=== PATIENT | male | born 1980 | race Caucasian/White ===

== ENCOUNTER 2016-09-30 09:42 | Emergency (ER) | payer OTHER ==
--- NOTE | 2016-09-30 10:59 | ER Document Report ---
HPI - HPI Patient complains to provider of: Right knee injury Onset: Last week Onset/Duration: Persistent Quality of pain: Sharp Pain Level: 4 Context: Patient states that he was standing on aircraft that was about 4 foot off the ground. Patient states that he fell backwards onto his right foot causing his right knee to buckle. Patient complains of right knee pain and swelling since then. Patient does report having previous ACL, MCL meniscus surgery on this knee in the past. Associated Symptoms: Other - Right knee injury Exacerbated by: Standing, Movement, Walking Relieved by: Denies Similar symptoms previously: Yes Recently seen / treated by doctor: No - ROS ROS below otherwise negative: Yes Systems Reviewed and Negative: Yes All other systems reviewed and negative - CARDIOVASCULAR Cardiovascular: DENIES: Chest pain - GASTROINTESTINAL Gastrointestinal: DENIES: Nausea - MUSCULOSKELETAL Musculoskeletal: REPORTS: Extremity pain, Swelling - DERM Skin Color: Normal Skin Problems: None Past Medical History - General Information source: Patient - Social History Smoking Status: Current Every Day Smoker Chew tobacco use (# tins/day): No Frequency of alcohol use: Rare Drug Abuse: None 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 IN LAST 30 DAYS: No - HEENT HEENT: Atraumatic, Normocephalic - NECK Neck: Normal Inspection - RESPIRATORY Respiratory: No Respiratory Distress O2 Sat by Pulse Oximetry: 97 - CARDIOVASCULAR Pulses: Normal: Dorsalis pedis - MUSCULOSKELETAL/EXTREMETIES Musculoskeletal/Extremeties: MAEW, FROM, Tender - Right knee joint tenderness to popliteal area. Patient with moderate effusion, patellar tendon intact, Edema. negative: Eccymosis - NEURO Level of Consciousness: Awake, Alert, Appropriate Motor/Sensory: No Motor Deficit - DERM Integumentary: Warm, Dry, No Rash Course - Vital Signs Vital signs: Temp Pulse Resp BP Pulse Ox 98.6 F 83 16 147/81 H 97 09/30/16 09:49 09/30/16 09:49 09/30/16 09:49 09/30/16 09:49 09/30/16 09:49 - Diagnostic Test Radiology reviewed: Image reviewed, Reports reviewed Procedures - Immobilization Right Knee Pre-Proc Neuro Vasc Exam: Normal Immobilizer type: Anuj wrap, Knee immobilizer Performed by: PCT Post-Proc Neuro Vasc Exam: Normal Alignment checked and good: Yes Discharge - Discharge Clinical Impression: Elevated blood pressure reading Knee sprain Qualifiers: Encounter type: initial encounter Involved ligament of knee: unspecified ligament Laterality: right Qualified Code(s): S83.91XA - Sprain of unspecified site of right knee, initial encounter Condition: Stable Disposition: HOME, SELF-CARE Instructions: Use of Crutches ([facility]), Ice & Elevation ([facility]), Suspected Internal Knee Injury ([facility]), Knee Immobilizing Splint ([facility]), Oral Narcotic Medication ([facility] ), Sprained Knee ([facility]) Additional Instructions: Return immediately for any new or worsening symptoms Followup with your primary care provider, call tomorrow to make a followup appointment Follow-up with your orthopedic surgeon for further evaluation, call today for an appointment Prescriptions: Oxycodone HCl/Acetaminophen [Percocet 5-325 mg Tablet] 1 tab PO ASDIR PRN #15 tablet PRN Reason: Forms: Elevated Blood Pressure, Return to Work Referrals: [facility] ([facility] [Provider Group] - Follow up as needed
[2016-09-30 11:14] VITALS: BP 140/80
--- NOTE | 2016-09-30 11:21 | RADIOLOGY REPORT (SQ) ---
EXAM DESCRIPTION: KNEE RIGHT 4 VIEWS COMPLETED DATE/TIME: 09/30/2016 11:11 am REASON FOR STUDY: right knee injury COMPARISON: None. NUMBER OF VIEWS: Four views. TECHNIQUE: AP, lateral, and both oblique radiographic images acquired of the right knee. LIMITATIONS: None. FINDINGS: MINERALIZATION: Normal. BONES: No acute fracture or dislocation. Postsurgical changes are identified related to an ACL repai r. There is some cortical irregularity in separate bony ossicles at the level of the tibial tuberosi ty presumably related to previous trauma. JOINT: No effusion. SOFT TISSUES: No soft tissue swelling. No radio-opaque foreign body. OTHER: Orthopedic hardware is identified at the level of the proximal tibia. IMPRESSION: No evidence for acute fracture dislocation. Postsurgical changes as noted above. Other findings as noted above. TECHNICAL DOCUMENTATION: JOB ID: [id number] [employer]- All Rights Reserved
== END 2016-09-30 11:14 | disposition home or self-care (01) ==
LOC: ER 09:42
DX: S83.91XA Sprain of unspecified site of right knee, initial encounter (principal); R03.0 Elevated blood-pressure reading, without diagnosis of hypertension; F17.200 Nicotine dependence, unspecified, uncomplicated; V97.0XXA Occupant of aircraft injured in other specified air transport accidents, initial encounter; Y99.0 Civilian activity done for income or pay
CPT/HCPCS: 99283; 73564; L1830

== ENCOUNTER 2019-09-25 13:03 | Emergency (ER) | payer BC, OTHER ==
--- NOTE | 2019-09-25 13:10 | ER Document Report ---
ED Medical Screen (RME) - General Chief Complaint: Laceration Stated Complaint: LEFT HAND INJURY Time Seen by Provider: 09/25/19 13:07 Mode of Arrival: Ambulatory Information source: Patient Notes: 39-year-old male presented to ED for a laceration to the fifth finger on the left hand. The finger is kind of hanging by the skin. He also has a laceration above his left eyebrow. He was cleaning up some brush and debris and he was using the machete with a right-handed swing it came out of his hand caught the left hand and then bounced up to the face. He is still actively bleeding. We will get x-rays and have seen promptly. I have greeted and performed a rapid initial assessment of this patient. A comprehensive ED assessment and evaluation of the patient, analysis of test results and completion of medical decision making process will be conducted by an additional ED providers. TRAVEL OUTSIDE OF THE [place] IN LAST 30 DAYS: No - Related Data Allergies/Adverse Reactions: No Known Allergies Allergy (Unverified 04/01/13 20:01) Past Medical History Renal/ Medical History: Denies: Hx Peritoneal Dialysis Past Surgical History: Reports: Hx Orthopedic Surgery - Immunizations Hx Diphtheria, Pertussis, Tetanus Vaccination: Yes - 2010
[2019-09-25] MEDS ORDERED: NORMAL SALINE 1000 ML 1,000 ML IV ONE (13:11)
[2019-09-25] MEDS ORDERED: CEFAZOLIN 2 GM/D5W RTU 2 GM/50 ML RTUPB IV ONE (13:20)
[2019-09-25] MEDS ORDERED: HYDROMORPHONE HCL INJ/PF 2 MG/ML AMPULE IV ONE (13:20)
--- NOTE | 2019-09-25 13:26 | ER Document Report ---
ED General - General Chief Complaint: Laceration Stated Complaint: LEFT HAND INJURY Time Seen by Provider: 09/25/19 13:07 Primary Care Provider: [facility] [Provider Group] - Follow up as needed Mode of Arrival: Ambulatory Notes: This is a 39-year-old inyyn-gakv-xesrvxgn male presenting with a laceration/near amputation of the right pinky finger in the setting of using a machete to clear brush. He chop the left pinky finger with his right hand, sliced through the distal phalangeal segment and initially bounced off and hit him in the left forehead causing a laceration there as well. No LOC bleeding controlled on the forehead bleeding active in the pinky. Tetanus is up-to-date. Patient has anesthesia to the distal finger distal to the laceration. TRAVEL OUTSIDE OF THE [place] IN LAST 30 DAYS: No - Related Data Allergies/Adverse Reactions: No Known Allergies Allergy (Unverified 04/01/13 20:01) Past Medical History - General Information source: Patient - Social History Smoking Status: Never Smoker Family History: Reviewed & Not Pertinent Renal/ Medical History: Denies: Hx Peritoneal Dialysis Past Surgical History: Reports: Hx Orthopedic Surgery - Immunizations Hx Diphtheria, Pertussis, Tetanus Vaccination: Yes - 2010 Physical Exam - Vital signs Vitals: Temp Pulse Resp BP Pulse Ox 98.6 F 88 14 135/78 H 99 09/25/19 15:11 09/25/19 15:11 09/25/19 15:11 09/25/19 15:11 09/25/19 15:11 Course - Re-evaluation Re-evalutation: 09/25/19 18:59 Machete injury with partial amputation, fracture dislocation arterial nerve and tendon injury of the left small finger. Distal circulation appears partially intact. His fingers are discolored at baseline so is difficult to tell. Also has laceration to the forehead with no acute blunt head trauma or concern for penetrating skull injury Forehead laceration repaired. Ortho consulted on the finger. X-ray shows open fracture of the distal middle phalanx with displacement of the joint. Dr. Grewal has seen the patient to Dr. Grewal is going to repair this in the ED including partial reattachment tendon repair and Dillon wire application. This was all done by him under sterile procedure and I give the patient antibiotic tetanus discharge with antibiotic and pain medicine to follow-up with Dr. Grewal's practice. I have discussed with the patient there likely diagnosis, aftercare plan, follow-up plans and my usual and customary return precautions. They verbalized understanding of this. - Vital Signs Vital signs: Temp Pulse Resp BP Pulse Ox 98.6 F 88 14 135/78 H 99 09/25/19 15:11 09/25/19 15:11 09/25/19 15:11 09/25/19 15:11 09/25/19 15:11 Procedures - Laceration/Wound Repair Left Upper Face Wound length (cm): 4 Wound's Depth, Shape: Superficial Laceration pre-procedure: Betadine prep applied Wound explored: Clean Irrigated w/ Saline (mLs): 50 Wound Repaired With: Dermabond - 2 layers Discharge - Discharge Clinical Impression: Amputation of finger Qualifiers: Encounter type: initial encounter Qualified Code(s): S68.119A - Complete traumatic metacarpophalangeal amputation of unspecified finger, initial encounter Condition: Good Disposition: HOME, SELF-CARE Instructions: Antibiotic Ointment Protection ([facility]), Laceration Care ([facility]), Prophylactic Antibiotic ([facility]) Additional Instructions: Dr. Grewal from orthopedics has reattached and repaired your pinky finger amputation. Per his instructions, return to his office next week for a follow- up. Keep the finger splinted. You may wash the area after 48 hours of keeping it dry should then replace the antibiotic ointment, bandaging and splint. Prescriptions: Cephalexin Monohydrate [Keflex 500 mg Capsule] 500 mg PO Q6H 5 Days capsule Oxycodone HCl [Oxycontin Ir 5 Mg Tablet] 1 - 2 mg PO Q4H PRN #15 tablet PRN Reason: For Pain Referrals: [facility] ([facility] [Provider Group] - Follow up as needed
[2019-09-25] MEDS ORDERED: LIDOCAINE 2% INJ (20 MG/ML) 20 ML MDV INJ ONE (14:05)
--- NOTE | 2019-09-25 15:17 | RADIOLOGY REPORT (SQ) ---
EXAM DESCRIPTION: FINGER LEFT IMAGES COMPLETED DATE/TIME: 09/25/2019 2:31 pm REASON FOR STUDY: laceration active bleeding hanging off COMPARISON: None. NUMBER OF VIEWS: Three views. TECHNIQUE: AP, lateral, and oblique images acquired of the left fifth finger. LIMITATIONS: None. FINDINGS: MINERALIZATION: Normal. BONES: There is a moderately displaced fracture of the dorsoradial base of the 5th digit distal phala nx with intra-articular extension. SOFT TISSUES: Soft tissue defect overlies the osseous injury site. OTHER: No other significant finding. IMPRESSION: Moderately displaced fracture of the dorsal radial base of the 5th digit distal phalanx with intra-articular extension and overlying soft tissue defect. TECHNICAL DOCUMENTATION: JOB ID: [id number] 2010 [employer]- All Rights Reserved Reading location - IP/workstation name: [email or web address]
[2019-09-25 16:08] VITALS: BP 135/78
--- NOTE | 2019-09-25 16:09 | Operative Report ---
Operative Report DATE OF SURGERY: 09/25/19 PREOPERATIVE DIAGNOSIS: Laceration and arthrotomy with flexor tendon complete l aceration of the DIP of the fifth digit of the left hand. POSTOPERATIVE DIAGNOSIS: Laceration and arthrotomy with flexor tendon complete laceration of the DIP of the fifth digit of the left hand. OPERATION: Left fifth finger I&D, repair of laceration, repair of flexor tendon. SURGEON: SUNNY MORALES JR COMPLICATIONS: None ESTIMATED BLOOD LOSS: 10 cc PROCEDURE: Bedside I&D was performed after discussing risks benefits and alternatives with the patient. I provided the patient with a block to the left fifth finger with 2% lidocaine. After adequate analgesia the left upper extremity was prepped with Betadine solution. I then placed the left fifth digit under tourniquet with a Paterson drain. The wound was explored and copiously irrigated. The laceration from his machete cut through the lateral aspect of the DIP joint and nearly completely amputated his finger aside from a radial skin bridge that appeared to contain the radial digital artery and nerve. After copious irrigation and debridement of any loose tissue, the flexor tendon was addressed. Using a 4-0 Vicryl suture a Vela type stitch was placed followed by oversewing in a running fashion. Subsequent to this I close the skin and underlying fascia with large bites from a 4-0 nylon in a running fashion. A sterile dressing was then placed followed by a splint. Patient tolerated procedure well.
--- NOTE | 2019-09-25 16:15 | PDOC CONSULTATION ---
Consultation Consult Date: 09/25/19 Provider Consulted: SUNNY MORALES JR History of Present Illness History of Present Illness: MICHEL CARMONA is a 39 year old male who struck his finger today while making his way through the [place] with his machete. He had near complete amp utation at that time and presented to the emergency department. He reports 8 out of 10 pain, worse with any motion, improved with rest, improved with pain medication. He explains that is surprisingly painful, more than he expected to be. He denies any other associated injury aside from a small laceration above his left eyebrow. He has minimal sensation of the fingertip at this time. Past Surgical History Past Surgical History: Reports: Orthopedic Surgery Social History Smoking Status: Current Every Day Smoker Electronic Cigarette use?: No Family History Family History: Reviewed & Not Pertinent Parental Family History Reviewed: No Children Family History Reviewed: NA Sibling(s) Family History Reviewed.: NA Medication/Allergy Home Medications: Buprenorphine [Butrans] 04/01/13 Tramadol HCl 04/01/13 Amox Tr/Potassium Clavulanate [Augmentin 875-125 Tablet] 1 tab PO BID #20 tablet 09/20/14 Crutch 1 each MC CONTINUOUS PRN #0 each 09/20/14 Oxycodone HCl/Acetaminophen [Percocet 5-325 mg Tablet] 1 tab PO QID #30 tablet 09/20/14 Oxycodone HCl/Acetaminophen [Percocet 5-325 mg Tablet] 1 tab PO ASDIR PRN #15 tablet 09/30/16 Cephalexin Monohydrate [Keflex 500 mg Capsule] 500 mg PO Q6H 5 Days capsule 09/25/19 Oxycodone HCl [Oxycontin Ir 5 Mg Tablet] 1 - 2 mg PO Q4H PRN #15 tablet 09/25/19 Allergies/Adverse Reactions: No Known Allergies Allergy (Unverified 04/01/13 20:01) Review of Systems Review of Systems: Constitutional: ABSENT: anorexia, chills, night sweats Cardiovascular: ABSENT: chest pain Respiratory: ABSENT: dyspnea Gastrointestinal: ABSENT: vomiting Genitourinary: ABSENT: dysuria Integumentary: ABSENT: rash Neurological: ABSENT: confusion, memory loss, numbness Psychiatric: ABSENT: hallucinations Hematologic/Lymphatic: ABSENT: easy bleeding Physical Exam Vital Signs: Temp Pulse Resp BP Pulse Ox 98.6 F 88 14 135/78 H 99 09/25/19 15:11 09/25/19 15:11 09/25/19 15:11 09/25/19 15:11 09/25/19 15:11 Intake & Output 09/24/19 09/25/19 09/26/19 06:59 06:59 06:59 Intake Total 1050 Balance 1050 Weight 104.355 kg Physical Exam: General appearance: PRESENT: no acute distress, cooperative, well-nourished Head exam: PRESENT: atraumatic, normocephalic Eye exam: PRESENT: EOMI Ear exam: PRESENT: normal external ear exam Mouth exam: PRESENT: neck supple Neck exam: ABSENT: tracheal deviation Respiratory exam: PRESENT: symmetrical, unlabored. ABSENT: accessory muscle use, wheezes Pulses: PRESENT: normal radial pulses, normal dorsalis pedis pulse Vascular exam: PRESENT: normal capillary refill GI/Abdominal exam: ABSENT: distended, firm Extremities exam: PRESENT: full ROM of bilateral shoulders, elbows wrists, knees, hips and ankles without pain Musculoskeletal exam: PRESENT: full ROM, normal inspection of all 4 extremities aside from that noted below. Neurological exam: PRESENT: alert, awake, oriented to person, oriented to place, oriented to time Psychiatric exam: PRESENT: appropriate affect. ABSENT: agitated Focused psych exam: ABSENT: catatonic Skin exam: PRESENT: intact. ABSENT: dry All as above aside from that noted in the HPI and the following: Left upper extremity sensation grossly intact to radial median and ulnar nerve. upper extremity motor function grossly intact to radian median ulnar nerve AIN and PIN Pulses 2+, capillary refill less than 2 seconds No deformity noted full range of motion of the elbow shoulder wrist and fingers without pain aside from below. Compartments soft, no tenderness to palpation The fifth digit has a laceration at the DIP joint, it is a visible arthrotomy with visible cartilaginous bony surfaces, additionally the flexor tendon is visible and completely lacerated. There is a small skin bridge on the radial aspect. Capillary refill is sluggish, 6 to 7 seconds. The distal fingertip is cool to touch. There is no pulsatile bleeding Results Impressions: Finger X-Ray 09/25/19 13:10 IMPRESSION: Moderately displaced fracture of the dorsal radial base of the 5th digit distal phalanx with intra-articular extension and overlying soft tissue defect. Assessment & Plan - Diagnosis (1) Amputation of finger Qualifiers: Encounter type: initial encounter Qualified Code(s): S68.119A - Complete traumatic metacarpophalangeal amputation of unspecified finger, initial encounter Is this a current diagnosis for this admission?: Yes Plan: The patient has a near complete amputation of his left fifth finger aside from a small skin bridge that potentially contains the radial digital artery and nerve. We discussed treatment options including salvage versus amputation. This time the patient wishes to proceed with salvage. See the operative report. -Patient is to see me in the office for further evaluation. If there is no return to vascularity or the digit appears necrotic, will need to complete amputation. -Sent home with p.o. antibiotics -Nonweightbearing left upper extremity with splint in place -Follow-up in my office and currently in Center for surgery in 5 days. -Take daily aspirin 325 mg
== END 2019-09-25 16:09 | disposition home or self-care (01) ==
LOC: ER 13:03
DX: S68.627A Partial traumatic transphalangeal amputation of left little finger, initial encounter (principal); S01.81XA Laceration without foreign body of other part of head, initial encounter; W27.8XXA Contact with other nonpowered hand tool, initial encounter; Y93.H9 Activity, other involving exterior property and land maintenance, building and construction
CPT/HCPCS: 99284; 96361; 96375; 96365; 73140; 26350; 12013; J3490; J1170; J7030; J0690